=== PATIENT | female | born 1970 | race Asian ===

== ENCOUNTER 2018-05-28 13:35 | Emergency (ER) | payer OTHER ==
[2018-05-28] MEDS ORDERED: NACL 0.9% 1000 ML 1,000 ML IV ONE ×3 (13:50→16:30)
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
[2018-05-28 14:43] LABS: Basophils % (Auto) 0.5 % (0.0-1.8); Eosinophils % (Auto) 0.4 % (0.0-4.3); Hematocrit 33.6 % (30.3-42.9); Hemoglobin 11.4 gm/dl (10.1-14.3); Lymphocytes # (Auto) 1.8 K/mm3 (1.2-5.4); Lymphocytes % (Auto) 39.1 % (13.4-35.0); Mean Corpuscular HGB Conc 34 % (30-34); Mean Corpuscular Hemoglobin 32 pg (28-32); Mean Corpuscular Volume 94 fl (79-97); Monocytes # (Auto) 0.2 K/mm3 (0.0-0.8); Monocytes % (Auto) 4.6 % (0.0-7.3); Platelet Count 176 K/mm3 (140-440); Red Blood Count 3.59 M/mm3 (3.65-5.03); Red Cell Distribution Width 15.1 % (13.2-15.2)
[2018-05-28 14:46] LABS: INR 0.95 (0.87-1.13)
[2018-05-28 14:47] LABS: Partial Thromboplastin Time 25.7 Sec. (24.2-36.6)
[2018-05-28 14:58] LABS: Alanine Aminotransferase 22 units/L (7-56); BUN/Creatinine Ratio 22; Blood Urea Nitrogen 11 mg/dL (7-17); Calcium 8.5 mg/dL (8.4-10.2); Hemolysis Index 3; Lipase 35 units/L (13-60)
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
[2018-05-28] MEDS ORDERED: ZOSYN/NS 4.5GM/100ML 4.5 GM/100 ML VIAL IV ONE (17:00)
[2018-05-28] MEDS ORDERED: MORPHINE IV ONE (17:37)
[2018-05-28] MEDS ORDERED: ZOFRAN IV ONE (17:37)
[2018-05-28 19:05] VITALS: BP 122/56
== END 2018-05-28 19:06 | disposition other institution (70) ==
LOC: ED 13:35
DX: R10.30 Lower abdominal pain, unspecified (principal); K63.1 Perforation of intestine (nontraumatic); F10.20 Alcohol dependence, uncomplicated; F17.210 Nicotine dependence, cigarettes, uncomplicated
CPT/HCPCS: 36415; 74177; 80053; 83690; 85025; 85610; 85730; 86850; 86900; 86901; 96361; 96365; 96375; 99285; G0480; J2270; J2405; J2543; J7030; Q9967; 80320